=== PATIENT | male | born 1945 | race Caucasian/White ===

== ENCOUNTER 2020-05-17 06:44 | Outpatient (CLI) | payer MEDICARE, OTHER ==
[2020-05-18 12:28] LABS: SARS-CoV-2 MS2 Positive; SARS-CoV-2 N Gene Negative; SARS-CoV-2 S Gene Negative; SARS-CoV-2 by NAA Not Detected (NotDetected); SARS-CoV-2 orf1ab Negative
== END 2020-05-17 06:45 | disposition home or self-care (01) ==
LOC: LABBT 06:44
PROVIDERS: ATTEND Ophthalmology Retina Specialist
DX: Z01.812 Encounter for preprocedural laboratory examination (principal); Z11.59 Encounter for screening for other viral diseases; H35.371 Puckering of macula, right eye
CPT/HCPCS: 87635; U0003

== ENCOUNTER 2020-05-21 06:24 | Day surgery (SDC) | payer MEDICARE, OTHER ==
[2020-05-15 11:34] VITALS: BMI 25.2
[~2020-05-21 06:24] MED LIST: EPINEPHrine 0.3 MG in Ophthalmic Irrigation Solution 500 ML IRR SCH
[2020-05-21] MEDS ORDERED: Phenylephrine 2.5% Ophth Soln 5 ML BOT ONE (06:31)
[2020-05-21] MEDS ORDERED: Cyclopentolate 1% Opth Drop 2 ML BOT ONE (06:32)
[2020-05-21] MEDS ORDERED: Fentanyl 100 MCG/2 ML VIAL ONE (06:54)
[2020-05-21] MEDS ORDERED: Midazolam HCl 2 mg/2 ml Vial ONE (06:54)
--- NOTE | 2020-05-21 09:15 | OP ---
DATE OF PROCEDURE: 05/21/2020 PRINCIPAL PREOPERATIVE DIAGNOSES: 1. Vitreomacular traction, right eye. 2. Macular pucker, epiretinal membrane, right eye. ESTIMATED BLOOD LOSS: None. SPECIMENS REMOVED: None. COMPLICATIONS: None. ANESTHESIA: MAC with sub-Tenon block. PROCEDURES PERFORMED: 1. 25-gauge pars plana vitrectomy, right eye. 2. Epiretinal membrane/internal limiting membrane removal, right eye. DESCRIPTION OF PROCEDURE: The patient was identified in the preoperative holding area, where the correct eye being the right eye was marked for surgery. The patient was taken to the operating room, where MAC anesthesia was induced. The right eye was prepped and draped in the usual sterile ophthalmic fashion for surgery. A wire-clip lid speculum was placed. An inferonasal conjunctival peritomy was fashioned with Linda scissors after administration of sub-Tenon block. The block consisted of 1:1 ratio of 4% lidocaine and 0.75% Marcaine. A total of 5 mL was administered. A standard 25-gauge pars plana vitrectomy platform was fashioned with trocars placed approximately 4 mm from the limbus. The infusion was noted to be within the vitreous cavity prior to being turned on to infusion pressure of 30 mmHg. The light pipe and microvitrector were introduced in the eye under visualization of the BIOM viewing system. A careful core vitrectomy was performed followed by injection of Kenalog. A gentle posterior vitreous detachment was created followed by completion of peripheral shave vitrectomy. Following vitrectomy, ICG dye was used to stain the internal limiting membrane. Using the Markus ILM forceps, an epiretinal membrane/internal limiting membrane complex removal was performed in a circumferential fashion about the fovea. The peel extended approximately 2 disc diameters in radius circumferentially. Following peeling, the microvitrector was reintroduced in the eye to remove any residual vitreous debris. A 360-degree scleral depressed exam of the periphery revealed no defects. The cannulas were sequentially removed with suturing required of the superotemporal sclerotomy with 8-0 Vicryl suture. Following suturing, all sclerotomies were noted to be watertight. Subconjunctival Ancef and Kenalog were injected. The wire lid speculum was removed followed by application of TobraDex ophthalmic ointment and a light patch and shield. The patient tolerated the procedure well and was taken to outpatient recovery area in good condition. Job ID: [id number]
[2020-05-21] MEDS ORDERED: PROPOFOL 200 MG/20 ML VIAL ONE (10:58)
[2020-05-21] MEDS ORDERED: Maxitrol 0.1% Opth Oint 3.5 GM TUBE ONE (10:58)
[2020-05-21] MEDS ORDERED: Bupivacaine PF 0.75% SDV 10 ML ONE (10:58)
[2020-05-21] MEDS ORDERED: Lidocaine 4% PF 5 ML AMP ONE (10:58)
[2020-05-21] MEDS ORDERED: Lidocaine 1% PF 5 ML VIAL ONE (10:58)
[2020-05-21] MEDS ORDERED: Triamcinolone 40 MG/ML VIAL ONE (10:58)
[2020-05-21] MEDS ORDERED: CEFAZOLIN 1 GM VIAL ONE (10:58)
[2020-05-21] MEDS ORDERED: Indocyanine Green 25 MG/10 ML VIAL ONE (10:58)
== END 2020-05-21 09:25 | disposition home or self-care (01) ==
LOC: SDC 06:24 → EEVIPCON 08:30 → SDC 09:25
PROVIDERS: ATTEND Ophthalmology Retina Specialist
PROC: 08T43ZZ Resection of Right Vitreous, Percutaneous Approach (ICD-10-PCS; principal; 2020-05-21)
PROC: 08NE3ZZ Release Right Retina, Percutaneous Approach (ICD-10-PCS; 2020-05-21)
DX: H43.821 Vitreomacular adhesion, right eye (principal); H35.371 Puckering of macula, right eye; N40.0 Benign prostatic hyperplasia without lower urinary tract symptoms; Z79.899 Other long term (current) drug therapy
CPT/HCPCS: J0171; J0690; J2001; J2250; J2704; J3010; J3301; J3490

== ENCOUNTER 2021-04-21 11:49 | Outpatient (CLI) | payer MEDICARE ==
[2021-04-21 13:02] LABS: #Eosinphils 0.1 10x3/uL (0.0-0.5); #Neutrophils 7.2 10x3/uL (1.5-8.4); %Basophils 0.3 % (0.0-2.0); %Eosinophils 0.5 % (0.0-6.0); %Lymphocytes 9.6 % (18.0-47.0); %Monocytes 10.3 % (0.0-10.0); Hemoglobin 12.2 g/dL (13.5-17.5); Mean Corpuscular HGB CONC 31.9 g/dL (32.0-36.0); Mean Corpuscular Hemoglobin 30.7 pg (27.0-33.0); Mean Corpuscular Volume 96.2 fl (81.2-95.1); Mean Platelet Volume 10.3 fl (7.4-10.4); Platelet Count 238 10x3/uL (150-450); RBC Distribution Width 13.5 % (11.5-14.5); Red Blood Cell (RBC) Count 3.97 10x6/uL (4.32-5.72); White Blood Cell (WBC) Count 9.2 10x3/uL (3.5-10.5)
[2021-04-21 13:51] LABS: ALT (SGPT) 49 U/L (8-55); AST (SGOT) 56 U/L (5-34); Albumin 3.4 g/dL (3.4-4.8); Alkaline Phosphatase 108 U/L (40-110); Anion Gap 16 mmol/L (10-20); BUN (Urea Nitrogen) 19 mg/dL (8.4-25.7); Bilirubin, Total 1.8 mg/dL (0.2-1.2); Calc. Creatinine Clearance 0 mL/min (70-130); Calcium 9.2 mg/dL (7.8-10.44); Carbon Dioxide 23 mmol/L (23-31); Chloride 106 mmol/L (98-107); Globulin 2.6 g/dL (2.4-3.5); Glucose 94 mg/dL (83-110); Sodium 140 mmol/L (136-145)
== END 2021-04-21 11:50 | disposition home or self-care (01) ==
LOC: LABBT 11:49
PROVIDERS: ATTEND Specialist
DX: Z01.812 Encounter for preprocedural laboratory examination (principal); K80.20 Calculus of gallbladder without cholecystitis without obstruction
CPT/HCPCS: 80053; 85025